=== PATIENT | male | born 1960 | race Caucasian/White ===

== ENCOUNTER 2017-03-17 04:06 | Emergency (ER) | payer MEDICAID ==
[~2017-03-17] VITALS: Ht 165.1 cm; Wt 77.0 kg
[~2017-03-17 04:06] MED LIST: HTN MEDS; OLME40TA12; TRAM50TA3
[2017-03-17 04:22] VITALS: BP 133/81
== END 2017-03-17 10:11 | disposition left against medical advice (07) ==
LOC: ER 04:06
DX: R10.9 Unspecified abdominal pain (principal); Z53.21 Procedure and treatment not carried out due to patient leaving prior to being seen by health care provider